=== PATIENT | female | born 2005 | race Caucasian/White ===

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

== ENCOUNTER 2025-04-24 00:29 | Emergency (ER) | payer MEDICAID ==
[~2025-04-24] VITALS: Ht 165.1 cm; Wt 204.1 kg
[~2025-04-24 00:29] MED LIST: VISTARIL25 M2 PO
== END 2025-04-24 01:25 | disposition home or self-care (01) ==
LOC: ED 00:29
DX: Z00.00 Encounter for general adult medical examination without abnormal findings (principal); K21.9 Gastro-esophageal reflux disease without esophagitis; G43.909 Migraine, unspecified, not intractable, without status migrainosus; E66.9 Obesity, unspecified